=== PATIENT | male | born 1990 | race Caucasian/White ===

== ENCOUNTER 2019-03-26 07:20 | Observation (INO) | payer BC ==
--- NOTE | 2019-03-26 07:47 | EDM.PDOC ---
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 [RC] PRN Peripheral IV Care [RC] . DIRECTED Pulse Oximetry [RC] CONTINUOUS Up With Assistance [RC] PFP Vital Signs [RC] PFP Chest 1V Frontal [CR] Stat Sodium Chloride 0.9% [Saline Flush] 10 ml FLUSH ASDIRECTED PRN Obtain Past Medical Record [OM.PC] Urgent Peripheral IV Insertion Adult [OM.PC] Stat Resuscitation Status Stat EKG 12 Lead [EK] Stat 03/26/19 07:53 Nitroglycerin [Nitrostat] 0.4 mg SL ONETIME STA 03/26/19 Breakfast Nothing per Oral Now Diet [DIET] - Assessment/Plan Admission H&P: Please use this note as an admission H&P Last 24 Hours: My Active Orders 03/26/19 07:48 Cardiac Monitoring [RC] . DIRECTED EKG Documentation Completion [RC] ASDIRECTED Oxygen Therapy, ED [RC] PRN Peripheral IV Care [RC] . DIRECTED Pulse Oximetry [RC] CONTINUOUS Up With Assistance [RC] PFP Vital Signs [RC] PFP Chest 1V Frontal [CR] Stat Sodium Chloride 0.9% [Saline Flush] 10 ml FLUSH ASDIRECTED PRN Obtain Past Medical Record [OM.PC] Urgent Peripheral IV Insertion Adult [OM.PC] Stat Resuscitation Status Stat EKG 12 Lead [EK] Stat 03/26/19 07:53 Nitroglycerin [Nitrostat] 0.4 mg SL ONETIME STA 03/26/19 Breakfast Nothing per Oral Now Diet [DIET] Assessment:: As above Plan: As above. Extensive precautions were given to the patient and his significant other, who are in agreement with the treatment plan. The patient's condition is stable enough for observation status and general supervision. [facility] physician assumes care after admission.
[2019-03-26] MEDS ORDERED: Aspirin 81 MG Tab.Chew CHEW ONE (07:48)
[2019-03-26] MEDS ORDERED: Sodium Chloride 0.9% 10 ML Syringe FLUSH PRN ×2 (07:48→09:04)
[2019-03-26] MEDS ORDERED: Famotidine 20 MG/2 ML SDV IVPUSH ONE (07:48)
[2019-03-26] MEDS ORDERED: Ticagrelor 90 MG Tab PO ONE (07:48)
[2019-03-26] MEDS ORDERED: Nitroglycerin 0.4 MG Tab.SL SL STA (07:53)
[2019-03-26 08:35] LABS: CHLORIDE,CL 107 mmol/L (98-107); SODIUM,NA 143 mmol/L (136-145)
[2019-03-26] MEDS ORDERED: Temazepam 15 MG Cap PO PRN (09:04)
[2019-03-26] MEDS: Nicotine 21 MG/24 Hr Patch TRDERM SCH (09:38)
[2019-03-26] MEDS: Potassium Chloride 20 MEQ Tab.ER PO SCH ×2 (09:38→17:18)
[2019-03-26] MEDS ORDERED: Acetaminophen 325 MG Tab PO PRN (10:00)
[2019-03-26] MEDS: Gabapentin 300 MG Cap PO SCH ×2 (12:08→19:16)
[2019-03-26] MEDS ORDERED: LORazepam 1 MG Tab PO ONE (18:07)
[2019-03-27 07:16] LABS: HEMOGLOBIN A1C 5.4 % (4.3-5.7)
[2019-03-27] MEDS: Gabapentin 300 MG Cap PO SCH (07:16)
[2019-03-27] MEDS: Nicotine 21 MG/24 Hr Patch TRDERM SCH (07:17)
[2019-03-27] MEDS: Potassium Chloride 20 MEQ Tab.ER PO SCH (07:17)
[2019-03-27 07:36] LABS: CHLORIDE,CL 108 mmol/L (98-107); SODIUM,NA 143 mmol/L (136-145)
[2019-03-27] MEDS ORDERED: Remove Patch NICOTINE PATCH TRDERM SCH (08:00)
--- NOTE | 2019-03-27 12:05 | PCM.DCSUM1 ---
Discharge Summary - Hospital Course Brief History: Patient admitted observation for evaluation of epigastric pain. Serial cardiac labs/telemetry. Diagnosis: Stroke: No - Discharge Data Discharge Date: 03/27/19 Discharge Disposition: Home, Self-Care 01 Condition: Good - Discharge Diagnosis/Problem(s) (1) Chest pain SNOMED Code(s): 38561132 ICD Code: R07.9 - CHEST PAIN, UNSPECIFIED Status: Acute Priority: High Current Visit: Yes Onset Date: 03/26/19 Problem Details: Chest pain protocol initiated immediately upon patient's arrival to the emergency room. Symptoms were essentially resolved at time of admission. Improved with nitroglycerin. Troponins negative. Intermittent bradycardia noted. No return of chest pain throughout stay. Suspect pain likely GI in nature given history, differential includes esophageal spasm which would also improve with Nitro. Patient had additional GI complaints over the last few days, including loose stools. May also have contribution from patient's sudden discontinuation of high concentration THC extracts/withdrawal. Patient would benefit from a cardiolite stress test on an outpatient basis to more fully rule out cardiac issues. Note mild leukocytosis likely secondary to stress reaction. Qualifiers: Chest pain type: unspecified Qualified Code(s): R07.9 - Chest pain, unspecified (2) Bradycardia SNOMED Code(s): 76838316 ICD Code: R00.1 - BRADYCARDIA, UNSPECIFIED Status: Acute Priority: High Current Visit: Yes Onset Date: 03/26/19 Problem Details: Significant bradycardia noted intermittently. Bradycardia asymptomatic during rest of stay. (3) Hypokalemia SNOMED Code(s): 99612865 ICD Code: E87.6 - HYPOKALEMIA Status: Chronic Priority: Medium Current Visit: Yes Problem Details: Mild hypokalemia likely secondary to recent mild viral gastroenteritis. Normal level today (4) Hyperuricemia SNOMED Code(s): 61835167 ICD Code: E79.0 - HYPERURICEMIA W/O SIGNS OF INFLAM ARTHRIT AND TOPHACEOUS DIS Status: Chronic Priority: Medium Current Visit: Yes Problem Details : Known history of gout, however currently nonsymptomatic. (5) Illicit drug use, continuous SNOMED Code(s): 239884921 ICD Code: F19.90 - OTHER PSYCHOACTIVE SUBSTANCE USE, UNSPECIFIED, UNCOMPLICATED Status: Chronic Priority: High Current Visit: Yes Problem Details: Has been using cannabis concentrates but suddenly quit these cold turkey on Sunday, 4 days ago. GI symptoms noted to start the next day. Yesterdays epigastric pain complaint may be related to sudden discontuation of these substances. History of alcohol and IV drug abuse, including previous inpatient treatment. Patient denies any current alcohol or IV drug use. (6) Mixed anxiety depressive disorder SNOMED Code(s): 813473294 ICD Code: F41.8 - OTHER SPECIFIED ANXIETY DISORDERS Status: Chronic Priority: Medium Current Visit: Yes Problem Details: Moderate control by history, however no current suicidal ideation, etc. Previous history of inpatient treatment and suicidal ideation without attempt in the distant past as above. Recommended follow up counseling, with consideration of Ketamine or MDMA assisted therapy given patient's history of PTSD (7) Osteoarthritis SNOMED Code(s): 823678086 ICD Code: M19.90 - UNSPECIFIED OSTEOARTHRITIS, UNSPECIFIED SITE Status: Chronic Priority: Medium Current Visit: Yes Problem Details: Stable by history Qualifiers: Osteoarthritis location: multiple joints Osteoarthritis type: primary Qualified Code(s): M15.0 - Primary generalized (osteo)arthritis (8) Tobacco abuse counseling SNOMED Code(s): 514748055, 213881322, 136056700 ICD Code: Z71.6 - TOBACCO ABUSE COUNSELING Status: Chronic Priority: Medium Current Visit: Yes Problem Details: Tobacco cessation and marijuana discontinuation strongly encouraged in the emergency room with information provided at discharge. - Patient Summary/Data Hospital Course: Patient remained symptom-free for rest of stay. Noted to become Bradycardic at times, sometimes in 40s and upper 30s. Asymptomatic at these times. Serial troponins negative. Suspect GI etiology for pain complaint, including gastroenteritis given the loose stools, and GI spasm which appeared to improve after single Nitroglycerin. Withdrawal from cannabis may also play a part in yesterday's complaint. Plan is to have patient follow up with his primary and discuss potential Cardiology consult given the bradycardia, as well as Cardiolite stress test/ cardiac echo to more completely rule out cardiac disease. Precautions reviewed. To follow up acutely in ER as needed for sudden return of symptoms. - Patient Instructions Diet: Usual Diet as Tolerated (Make suggested changes, eat "clean" food/ beverages) Activity: As Tolerated Driving: May Drive Today Showering/Bathing: May Shower Other/Special Instructions: Make an appointment with your primary provider. Have your potassium rechecked. Discuss possible stress testing/cardiac echo to more fully assess your heart. Possible Cardiology referral as needed for any further cardiac concerns, including your intermittent Bradycardia (slow heart rate). Follow up as needed in ER if sudden problems/worsening noted. - Discharge Plan *PRESCRIPTION DRUG MONITORING PROGRAM REVIEWED*: Not Applicable *COPY OF PRESCRIPTION DRUG MONITORING REPORT IN PATIENT MIKE: Not Applicable Home Medications: Home Meds Bismuth Subsalicylate [Pepto Bismol] 30 ml PO ONETIME 03/26/19 [History] Gabapentin [Neurontin] 2 tab PO TID 03/26/19 [History] Patient Handouts: Steps to Quit Smoking, [id number], Nonspecific Chest Pain, [id number] Forms: ED Department Discharge, ED Return to Work/School Form Referrals: Deven Huynh PA-C [Primary Care Provider] - - Discharge Summary/Plan Comment DC Time >30 min.: No - General Info Date of Service: 03/27/19 Admission Dx/Problem (Free Text: Epigastric chest pain. Loose stools. Recent sudden discontinuation of THC/ cannabis Subjective Update: Pain free. Feels back to baseline. Would like to go home. Functional Status: Reports: Pain Controlled, Tolerating Diet, Ambulating, Urinating. Denies: New Symptoms - Review of Systems General: Reports: No Symptoms HEENT: Reports: No Symptoms Pulmonary: Reports: No Symptoms Cardiovascular: Reports: No Symptoms Gastrointestinal: Reports: No Symptoms. Denies: Diarrhea Genitourinary: Reports: No Symptoms Musculoskeletal: Reports: No Symptoms Skin: Reports: No Symptoms Neurological: Reports: No Symptoms Psychiatric: Reports: No Symptoms. Denies: Anxiety, Agitation, Cravings, Hallucinations, Suicidal Ideation, Homicidal Ideation - Patient Data Vitals - Most Recent: Last Vital Signs Temp 36.0 C 03/27/19 07:53 Pulse 52 L 03/27/19 07:53 Resp 16 03/27/19 07:53 BP 142/68 H 03/27/19 07:53 Pulse Ox 98 03/27/19 07:53 Weight - Most Recent: 81.012 kg Lab Results - Last 24 hrs: Laboratory Results - last 24 hr 03/26/19 03/26/19 03/27/19 Range/Units 13:47 19:46 06:43 WBC 6.8 (4.0-10.2) K/uL RBC 4.87 (4.33-5.41) M/uL Hgb 14.4 (13.1-16.8) g/dL Hct 41.9 (39.0-49.0) % MCV 86.0 (84.0-98.0) fL MCH 29.6 (28.2-33.3) pg MCHC 34.4 (31.7-36.0) g/dL RDW 14.0 (11.2-14.1) % Plt Count 218 (150-350) K/uL Neut % (Auto) 51.6 (45.0-80.0) % Lymph % (Auto) 33.2 (10.0-50.0) % Brooks % (Auto) 9.3 (2.0-14.0) % Eos % (Auto) 5.8 H (0.0-5.0) % Baso % (Auto) 0.1 (0.0-2.0) % Neut # (Auto) 3.49 (1.40-7.00) K/uL Lymph # (Auto) 2.25 (0.50-3.50) K/uL Brooks # (Auto) 0.63 (0.00-1.00) K/uL Eos # (Auto) 0.39 (0.00-0.50) K/uL Baso # (Auto) 0.01 (0.00-0.20) K/uL Sodium (136-145) mmol/L Potassium (3.5-5.1) mmol/L Chloride (98-107) mmol/L Carbon Dioxide (21.0-32.0) mmol/L BUN (7-18) mg/dL Creatinine (0.51-1.17) mg/dL Est Cr Clr Drug Dosing mL/min Estimated GFR (MDRD) mL/min Glucose (74-106) mg/dL Hemoglobin A1c (4.3-5.7) % Calcium (8.5-10.1) mg/dL Total Bilirubin (0.2-1.0) mg/dL AST (15-37) U/L ALT (12-78) U/L Alkaline Phosphatase (46-116) IU/L Creatine Kinase 413 H 398 H (26-308) U/L Creatine Kinase Index 0.4 0.3 (0.0-2.5) % CK-MB (CK-2) 1.50 1.20 (0.00-3.60) ng/mL Troponin I 0.000 0.000 (0.000-0.056) ng/mL Total Protein (6.4-8.2) g/dL Albumin (3.4-5.0) g/dL Triglycerides (30-150) mg/dL Cholesterol (100-200) mg/dL LDL Cholesterol, Calc (0-100) mg/dL HDL Cholesterol (40-60) mg/dL 03/27/19 03/27/19 Range/Units 06:43 06:43 WBC (4.0-10.2) K/uL RBC (4.33-5.41) M/uL Hgb (13.1-16.8) g/dL Hct (39.0-49.0) % MCV (84.0-98.0) fL MCH (28.2-33.3) pg MCHC (31.7-36.0) g/dL RDW (11.2-14.1) % Plt Count (150-350) K/uL Neut % (Auto) (45.0-80.0) % Lymph % (Auto) (10.0-50.0) % Brooks % (Auto) (2.0-14.0) % Eos % (Auto) (0.0-5.0) % Baso % (Auto) (0.0-2.0) % Neut # (Auto) (1.40-7.00) K/uL Lymph # (Auto) (0.50-3.50) K/uL Brooks # (Auto) (0.00-1.00) K/uL Eos # (Auto) (0.00-0.50) K/uL Baso # (Auto) (0.00-0.20) K/uL Sodium 143 (136-145) mmol/L Potassium 3.7 (3.5-5.1) mmol/L Chloride 108 H (98-107) mmol/L Carbon Dioxide 21.8 (21.0-32.0) mmol/L BUN 12 (7-18) mg/dL Creatinine 1.18 H (0.51-1.17) mg/dL Est Cr Clr Drug Dosing 99.74 mL/min Estimated GFR (MDRD) > 60 mL/min Glucose 79 (74-106) mg/dL Hemoglobin A1c 5.4 (4.3-5.7) % Calcium 8.4 L (8.5-10.1) mg/dL Total Bilirubin 1.0 (0.2-1.0) mg/dL AST 18 (15-37) U/L ALT 26 (12-78) U/L Alkaline Phosphatase 49 (46-116) IU/L Creatine Kinase 286 (26-308) U/L Creatine Kinase Index 0.3 (0.0-2.5) % CK-MB (CK-2) 0.90 (0.00-3.60) ng/mL Troponin I 0.000 (0.000-0.056) ng/mL Total Protein 6.5 (6.4-8.2) g/dL Albumin 3.9 (3.4-5.0) g/dL Triglycerides 34 (30-150) mg/dL Cholesterol 93 L (100-200) mg/dL LDL Cholesterol, Calc 43 (0-100) mg/dL HDL Cholesterol 43 (40-60) mg/dL Med Orders - Current: Current Medications Acetaminophen (Tylenol) 650 mg PO Q4H PRN PRN Reason: Pain Gabapentin (Neurontin) 1,200 mg PO TID@08,12,20 [facility] Last Admin: 03/27/19 07:16 Dose: 1,200 mg Miscellaneous Information (Remove Patch) 1 ea TRDERM DAILY [facility] Last Admin: 03/27/19 07:21 Dose: 1 ea Nicotine (Habitrol) 21 mg TRDERM DAILY [facility] Last Admin: 03/27/19 07:17 Dose: 21 mg Potassium Chloride (Klor-Con M20) 20 meq PO BID [facility] Last Admin: 03/27/19 07:17 Dose: 20 meq Sodium Chloride (Saline Flush) 10 ml FLUSH ASDIRECTED PRN PRN Reason: Keep Vein Open Last Admin: 03/26/19 08:03 Dose: 10 ml Sodium Chloride (Saline Flush) 10 ml FLUSH Q12HR PRN PRN Reason: Keep Vein Open Temazepam (Restoril) 15 mg PO BEDTIME PRN PRN Reason: Insomnia Discontinued Medications Aspirin (Aspirin) 324 mg CHEW ONETIME ONE Stop: 03/26/19 07:49 Last Admin: 03/26/19 07:53 Dose: 324 mg Famotidine (Pepcid) 40 mg IVPUSH ONETIME ONE Stop: 03/26/19 07:49 Last Admin: 03/26/19 07:59 Dose: 40 mg Lorazepam (Ativan) 1 mg PO ONETIME ONE Stop: 03/26/19 18:08 Last Admin: 03/26/19 18:38 Dose: 1 mg Nitroglycerin (Nitrostat) 0.4 mg SL ONETIME STA Stop: 03/27/19 07:54 Last Admin: 03/26/19 08:03 Dose: 0.4 mg Ticagrelor (Brilinta) 180 mg PO ONETIME ONE Stop: 03/26/19 07:49 Last Admin: 03/26/19 07:54 Dose: 180 mg - Exam General: Reports: Alert, Oriented, Cooperative, No Acute Distress HEENT: Reports: Pupils Equal, Pupils Reactive, EOMI, Mucous Membr. Moist/[place]: Reports: Supple Lungs: Reports: Clear to Auscultation, Normal Respiratory Effort Cardiovascular: Reports: Regular Rate, Regular Rhythm GI/Abdominal Exam: Normal Bowel Sounds, Soft, Non-Tender, No Distention (Male) Exam: Deferred Rectal (Males) Exam: Deferred Back Exam: Reports: Normal Inspection Extremities: Normal Inspection, Normal Range of Motion, Non-Tender, No Pedal Edema, Normal Capillary Refill Skin: Reports: Warm, Dry, Intact Neurological: Reports: No New Focal Deficit Psy/Mental Status: Reports: Alert, Normal Affect, Normal Mood EKG INTERPRETATION EKG Date: 03/27/19 Time: 07:12 Rhythm: Other (Bradycardia) Rate (Beats/Min): 42 [place]: Normal P-Wave: Present QRS: Normal ST-T: Normal QT: Normal Comparison: No Change
--- NOTE | 2019-03-28 13:47 | PCM.SN ---
- Free Text/Narrative Note: + for H.Pylori Prevpac ordered via [facility]. Nursing staff left message with pt to return call regarding + test and antibiotic therapy ordered to treat it.
== END 2019-03-27 12:45 | disposition home or self-care (01) ==
LOC: LL.ED 07:20 → LL.MS 08:47
PROVIDERS: ADMIT Family Medicine; ATTEND Emergency Medicine
DX: R10.13 Epigastric pain (principal); R07.9 Chest pain, unspecified; R00.1 Bradycardia, unspecified; E87.6 Hypokalemia; E79.0 Hyperuricemia without signs of inflammatory arthritis and tophaceous disease; M15.0 Primary generalized (osteo)arthritis; F17.210 Nicotine dependence, cigarettes, uncomplicated; F19.90 Other psychoactive substance use, unspecified, uncomplicated; F41.8 Other specified anxiety disorders; J45.909 Unspecified asthma, uncomplicated; K21.9 Gastro-esophageal reflux disease without esophagitis; G89.29 Other chronic pain; Z88.2 Allergy status to sulfonamides; Z79.899 Other long term (current) drug therapy
CPT/HCPCS: 36415; 71045; 80053; 80061; 82150; 82272; 82550; 82553; 83036; 83605; 83690; 83735; 83880; 84443; 84484; 84550; 85025; 85379; 85610; 85730; 87338; 93005; 96374; 99285-25; A9270-GY; G0378; J3490

== ENCOUNTER 2019-12-28 21:30 | Emergency (ER) | payer BC ==
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
== END 2019-12-28 22:00 | disposition home or self-care (01) ==
LOC: LL.ED 21:30
DX: L24.2 Irritant contact dermatitis due to solvents (principal); J45.909 Unspecified asthma, uncomplicated; Z88.2 Allergy status to sulfonamides
CPT/HCPCS: 99282

== ENCOUNTER 2020-05-25 02:46 | Emergency (ER) | payer SELFPAY ==
[2020-05-25 03:27] LABS: CHLORIDE,CL 109 mmol/L (98-107); SODIUM,NA 145 mmol/L (136-145)
[2020-05-25 03:47] LABS: BARBITURATE SCREEN,URINE NEGATIVE (NEGATIVE); BENZODIAZEPINES SCREEN,URINE NEGATIVE (NEGATIVE); EDDP,URINE SCREEN NEGATIVE (NEGATIVE); TCA SCREEN,URINE NEGATIVE (NEGATIVE); THC SCREEN,URINE 50 NG/ML POSITIVE (NEGATIVE)
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
== END 2020-05-25 04:10 ==
LOC: LL.ED 02:46
DX: S51.812A Laceration without foreign body of left forearm, initial encounter (principal); S51.811A Laceration without foreign body of right forearm, initial encounter; S11.91XA Laceration without foreign body of unspecified part of neck, initial encounter; J45.909 Unspecified asthma, uncomplicated; F19.90 Other psychoactive substance use, unspecified, uncomplicated; F41.9 Anxiety disorder, unspecified; F32.9 Major depressive disorder, single episode, unspecified; Z88.2 Allergy status to sulfonamides; Z79.899 Other long term (current) drug therapy; X78.1XXA Intentional self-harm by knife, initial encounter
CPT/HCPCS: 36415; 80053; 80305-QW; 80307; 85025; 99284; 99285

== ENCOUNTER 2022-05-19 09:57 | Emergency (ER) | payer MEDICAID | END 2022-05-19 11:00 | disposition home or self-care (01) | LOC: LL.ED 09:57 → SUPCPDRO 09:57 → LL.ED 11:00 | DX: K40.90 Unilateral inguinal hernia, without obstruction or gangrene, not specified as recurrent (principal); Z88.2 Allergy status to sulfonamides | CPT/HCPCS: 99283; 99284 ==